=== PATIENT | male | born 1980 | race Caucasian/White ===

== ENCOUNTER → 2018-12-05 08:18 | Emergency (ER) | payer OTHER ==
[~2018-12-05 08:18] MED LIST: Ibuprofen TAB* 800 MG PO ONE; Lidocaine 1% MPF ** 5 ML VIAL INJ ONE; Tetan/Diph/Pertus SYR(Tdap)* 0.5 ML SYR(BOOSTRIX) use SYR IM ONE; oxyCODONE/Acetamin 5/325 MG* TAB PO ONE
--- NOTE | 2018-12-05 08:32 | ED ---
Upper Extremity Pain - HPI Summary HPI Summary: Patient is a 38-year-old male who presents emergency department for left hand injury that occurred today at work. Patient states he was using a drill when the drill caught his left glove and his left hand got wrapped around drill. Denies past medical history. Last tetanus immunization was 5+ years ago. Symptoms are mild in severity. Moving hand makes symptoms worse. Nothing makes symptoms better. Patient [id number]. - History of Current Complaint Chief Complaint: EDLacSutureRecheck Stated Complaint: LT HAND INJ PER PT Time Seen by Provider: 12/05/18 08:25 Hx Obtained From: Patient - Allergies/Home Medications Allergies/Adverse Reactions: Allergies Allergy/AdvReac Type Severity Reaction Status Date / Time No Known Allergies Allergy Verified 12/05/18 08:21 PMH/Surg Hx/FS Hx/Imm Hx Previously Healthy: Yes Infectious Disease History: No Infectious Disease History: Denies: Traveled Outside the [place] in Last 30 Days - Family History Known Family History: Positive: Non-Contributory - Social History Occupation: Employed Full-time Lives: With Family Review of Systems Positive: Other - pain to left hand Positive: Bruising Negative: Weakness, Paresthesia, Numbness All Other Systems Reviewed And Are Negative: Yes Physical Exam Triage Information Reviewed: Yes Vital Signs On Initial Exam: Initial Vitals Temp Pulse Resp BP Pulse Ox 97.7 F 58 18 114/69 96 12/05/18 08:19 12/05/18 08:19 12/05/18 08:19 12/05/18 08:19 12/05/18 08:19 Vital Signs Reviewed: Yes Appearance: Positive: Well-Appearing - Pt. lying on bed in NAD. Left hand wrapped. Coworker present. Skin: Positive: Warm, Dry Head/Face: Positive: Normal Head/Face Inspection Eyes: Positive: Normal, EOMI Neck: Positive: Supple Musculoskeletal: Positive: Other - Mild deformity to 4th digit of left hand. 50 % superficial nail avulsion the 5th digit. Ecchomisis to distal hand on dorsal aspect. Neurological: Positive: Normal, CN Intact II-III Psychiatric: Positive: Affect/Mood Appropriate Procedures - Joint Reduction Left Joint Reduction Site: other - left 4th digit of hand Specify Other Joint Reduced: left 4th digit of hand Conscious Sedation: No Reduction Attempts: 1 Pre-Procedure NV Exam: Yes Post Joint Reduction Film: joint reduced Diagnostics - Vital Signs Vital Signs Temp Pulse Resp BP Pulse Ox 12/05/18 08:19 97.7 F 58 18 114/69 96 - Laboratory Lab Statement: Any lab studies that have been ordered have been reviewed, and results considered in the medical decision making process. Course/Dx - Course Course Of Treatment: Pt. with left hand injury. Initial hand xray shows dislocation at the 4th finger at the PIP joint. Finger was reduced easily after digital block and splint. Post reduction film shows reduction of 4th digit but shows a dislocation of the 5th digit at the DIP joint. DIP joint of 5th digit was easily reduced and pt. then had full ROM of 5th digit. Splint placed. I did not perform another post reduction xray: pt. confirmed reduction with ROM. Tetanus updated. Wound to 5th digit cleaned and dressed. Will have pt. f.u with orthopedics [facility]. Pt. would like to continue motrin for pain. To ice and elevate. Will return to ER If sxs change or worsen. - Diagnoses Differential Diagnosis/HQI/PQRI: Positive: Fracture (Open), Fracture (Closed), Strain, Sprain Provider Diagnoses: Finger dislocation, Nail avulsion, Finger fracture Discharge - Sign-Out/Discharge Documenting (check all that apply): Patient Departure Patient Received Moderate/Deep Sedation with Procedure: No - Discharge Plan Condition: Improved Disposition: HOME Prescriptions: Cephalexin CAP* [Keflex CAP*] 500 mg PO BID #20 cap Ibuprofen TAB* [Motrin TAB* 800 MG] 800 mg PO Q8H #20 tab Patient Education Materials: Finger Fracture (ED), Finger Dislocation (ED), Hand Sprain (ED), Nail Avulsion (ED) Referrals: Eugene Westfall MD [Medical Doctor] - Additional Instructions: Follow up with Dr. Westfall (orthopedics) within 1 [address] splint in [address] Ice and elevate Tylenol or Motrin for pain as directed Keep wound clean and dry Return to ER if symptoms change or worsen - Billing Disposition and Condition Condition: IMPROVED Disposition: Home
[2018-12-05 10:57] VITALS: BP 130/68
== END | disposition home or self-care (01) ==
LOC: ED 08:18
DX: S63.285A Dislocation of proximal interphalangeal joint of left ring finger, initial encounter (principal); S63.297A Dislocation of distal interphalangeal joint of left little finger, initial encounter; S62.637A Displaced fracture of distal phalanx of left little finger, initial encounter for closed fracture; S61.307A Unspecified open wound of left little finger with damage to nail, initial encounter; Z23 Encounter for immunization; W31.89XA Contact with other specified machinery, initial encounter; Y92.89 Other specified places as the place of occurrence of the external cause; Y99.0 Civilian activity done for income or pay
CPT/HCPCS: 26770; 73140; 90471; 90715; 96372; 99283; A9270-GY